=== PATIENT | male | born 1980 | race Caucasian/White ===

== ENCOUNTER → 2016-12-14 | Outpatient (CLI) | payer MEDICARE | LOC: HEART CORB 12-14 07:54 | DX: R07.2 Precordial pain (principal); I10 Essential (primary) hypertension ==

== ENCOUNTER 2020-10-14 07:31 | Emergency (ER) | payer OTHER ==
[~2020-10-14 07:31] MED LIST: ESOMEPRAZOLE MA20 MG PO; LORATADINE10 MG PO; MONTELUKAST SOD10 MG PO; NICOTINE PATCH1 EAC5 TD; VENTOLIN HFA 66.7 GM INH; ZOFRAN4 MG PO
[2020-10-14 09:36] LABS: HEMOGLOBIN 14.9 gm/dl (14.0-17.5); RED BLOOD COUNT 5.03 M/UL (4.20-5.50); WHITE BLOOD COUNT 8.8 K/UL (4.5-11.0)
[2020-10-14 10:12] LABS: BUN/CREATININE RATIO 17 (0-10)
[2020-10-14] MEDS ORDERED: PROAIR HFA8.5 GM INH (10:55)
[2020-10-14] MEDS ORDERED: ALBUTEROL2.5 MG/3 M INH (10:55)
[2020-10-14] MEDS ORDERED: PREDNISONE 20 M20 MG PO (10:55)
[2020-10-14] MEDS ORDERED: NEXIUM40 MG PO (10:55)
== END 2020-10-14 11:26 | disposition home or self-care (01) ==
LOC: ER1 07:31
PROVIDERS: Physician Assistant
DX: U07.1 COVID-19 (principal); J45.901 Unspecified asthma with (acute) exacerbation; R10.13 Epigastric pain; K21.9 Gastro-esophageal reflux disease without esophagitis; F17.200 Nicotine dependence, unspecified, uncomplicated; Z79.899 Other long term (current) drug therapy
CPT/HCPCS: 36415; 71045; 80053; 82550; 82553; 83690; 83874; 84484; 85025; 93005; 99285

== ENCOUNTER → 2020-12-16 | Outpatient (CLI) | payer OTHER ==
[~2020-12-16] MED LIST changes: +ALBUTEROL2.5 MG/3 M INH; +NEXIUM40 MG PO; +PREDNISONE 20 M20 MG PO; +PROAIR HFA8.5 GM INH
== END ==
LOC: GENOP 01:44
DX: Z02.83 Encounter for blood-alcohol and blood-drug test (principal)
CPT/HCPCS: 36415